=== PATIENT | male | born 2000 | race Two or more races ===

== ENCOUNTER 2023-06-22 17:29 | Emergency (ER) | payer OTHER ==
[~2023-06-22] VITALS: Ht 170.2 cm; Wt 82.0 kg
[2023-06-22 17:36] VITALS: BP 124/75; PULSE 107; RESP 16; TEMP 97.9; O2SAT 99
[2023-06-22] MEDS ORDERED: ONDANSETRON HCL 4MG/2ML INJ IM ONE (17:45)
== END 2023-06-22 18:08 | disposition left against medical advice (07) ==
LOC: ER 17:29
DX: F10.129 Alcohol abuse with intoxication, unspecified (principal); Y90.9 Presence of alcohol in blood, level not specified
CPT/HCPCS: 99283; J2405; Z7610